=== PATIENT | female | born 1955 | race American Indian/Alaskan Native ===

== ENCOUNTER 2018-02-15 06:52 | Day surgery (SDC) | payer OTHER ==
[~2018-02-15 06:52] MED LIST: ANCEF/STERILE WATER 2 GM/20 ML 2 GM/20 ML SYRINGE IV NR; NACL 0.9% 1000 ML 1,000 ML IV SCH
[2018-02-15] MEDS ORDERED: NACL 0.9% 500 ML 500 ML IV SCH (08:00)
[2018-02-15 08:41] LABS: Basophils # (Auto) 0.1 K/mm3 (0.0-0.1); Basophils % (Auto) 0.8 % (0.0-1.8); Eosinophils # (Auto) 0.1 K/mm3 (0.0-0.4); Eosinophils % (Auto) 0.5 % (0.0-4.3); Hematocrit 40.3 % (30.3-42.9); Hemoglobin 13.2 gm/dl (10.1-14.3); Lymphocytes # (Auto) 1.6 K/mm3 (1.2-5.4); Lymphocytes % (Auto) 13.4 % (13.4-35.0); Mean Corpuscular HGB Conc 33 % (30-34); Mean Corpuscular Hemoglobin 28 pg (28-32); Mean Corpuscular Volume 85 fl (79-97); Monocytes # (Auto) 0.4 K/mm3 (0.0-0.8); Monocytes % (Auto) 3.6 % (0.0-7.3); Platelet Count 263 K/mm3 (140-440); Red Blood Count 4.73 M/mm3 (3.65-5.03); Red Cell Distribution Width 17.4 % (13.2-15.2)
[2018-02-15 08:51] LABS: INR 0.83 (0.87-1.13); Partial Thromboplastin Time 29.1 Sec. (24.2-36.6)
[2018-02-15 08:57] LABS: BUN/Creatinine Ratio 17; Blood Urea Nitrogen 10 mg/dL (7-17); Calcium 8.7 mg/dL (8.4-10.2); Hemolysis Index 1
[2018-02-15] MEDS ORDERED: HEPARIN/NS 5000 UNIT/500ML(CATH LAB) 500 ML IR ONE (08:57)
[2018-02-15] MEDS ORDERED: VERSED ONE (08:58)
[2018-02-15] MEDS ORDERED: HEPARIN 10,000 UNITS/10 ML ONE (08:59)
[2018-02-15] MEDS ORDERED: XYLOCAINE 2% INFILTRATI ONE (08:59)
[2018-02-15] MEDS: SUBLIMAZE ONE ×2 (09:15→09:48)
[2018-02-15] MEDS ORDERED: TORADOL ONE (09:36)
--- NOTE | 2018-02-15 09:48 | Short Stay Summary ---
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 H&P: obtained from office - Allergies and Medications Current Medications: Allergies No Known Allergies Allergy (Verified 02/15/18 07:34) Home Medications Medication Instructions Recorded Confirmed Last Taken Type Aspirin [Aspirin BABY CHEW TAB] 81 mg PO QDAY 02/15/18 02/15/18 02/15/18 History 81 Bisoprolol 10 mg PO QDAY 02/15/18 02/15/18 02/15/18 History 10 Sertraline [Zoloft] 50 mg PO QDAY 02/15/18 02/15/18 02/08/18 History 50 Zolpidem [Ambien] 10 mg PO QHS 02/15/18 02/15/18 02/08/18 History 10 predniSONE [Deltasone] 10 mg PO QDAY 02/15/18 02/15/18 02/14/18 History 10 Active Medications Cefazolin Sodium (Ancef/Sterile Water 2 Gm/20 Ml) 2 gm in 20 mls @ 80 mls/hr IV PREOP NR; Protocol Stop: 02/15/18 23:59 Sodium Chloride (Nacl 0.9% 500 Ml) 500 mls @ 50 mls/hr IV DIRECT ASHLEY - Brief post op/procedure progress note Date of procedure: 02/15/18 Pre-op diagnosis: venous hypertension secondary to extrinsic compression Post-op diagnosis: same Procedure: Venoplasty with stent placement Anesthesia: local Surgeon: DALY OREILYL Estimated blood loss: minimal Pathology: none Condition: stable - Disposition Condition at discharge: Good Disposition: [id number] TO HOME OR SELFCARE Short Stay Discharge Plan Activity: advance as tolerated Weight Bearing Status: Weight Bear as Tolerated Diet: regular Wound: keep clean and dry, per your surgeon's advice Follow up with: KENNA COLLAZO MD [Primary Care Provider] - 7 Days
--- NOTE | 2018-02-15 09:54 | Operative Report ---
Operative Report Operative Report: Exam: Bilateral lower extremity venogram, intravascular ultrasound, venoplasty with stent placement Clinical indication: Patient with bilateral lower extremity venous hypertension secondary to extrinsic compression of a vein Date: 02/15/2018 Procedure: Following an explanation of the risks, benefits and alternatives; written informed consent was obtained. The patient was brought to the angiographic suite and placed in supine position on the examination table. Initial ultrasound evaluation of her legs demonstrated patent bilateral femoral veins. The patient's legs were prepped from mid thigh to the groin bilaterally. 1% lidocaine was used for anesthesia. Under ultrasound guidance, the right femoral vein was cannulated proximally using a 7 cm 18-gauge needle. A 0.035 guidewire was advanced centrally under fluoroscopy. The needle was removed and a 5 [place] sheath placed. Access to the left femoral vein was obtained in a similar fashion and a second 5 [place] sheath placed in the left femoral vein. Contrast was injected through the sheath which demonstrated significant extrinsic compression of the left common iliac vein from the right common iliac artery. Additionally, there is significant compression of the right common iliac vein from the right common iliac artery is well. A decision was made to further evaluate with intravascular ultrasound. Over the 0.035 guidewires, the sheaths were upsized to 10 [place] bilaterally. Intravascular ultrasound was performed through the right sheath from the IVC to the right common iliac vein, right external iliac vein and right common femoral vein. There is long segment narrowing of the right common iliac vein extending into the right external iliac vein of approximately 60%. The right common femoral vein is patent. Intravascular ultrasound was then performed from the left sheath from the IVC to the left common iliac vein, left external iliac vein and left common femoral vein. There is a focal 80-90% stenosis of the left common iliac vein just distal to its origin from the artery compressing the vein. There is prestenotic dilatation of the left external iliac vein. The left common femoral vein appears normal. A decision was made to treat these lesions. A 16 x 90 mm Wallstent was advanced through the left sheath. A second 16-90 mm Wallstent was advanced through the right sheath. The stents were deployed in kissing fashion to extending from just above the iliac bifurcation to the external iliac veins bilaterally. The stents were then seated using a 14 mm x 40 mm balloon insufflated to 4 juma at multiple locations. Post stent deployment imaging demonstrated reduction of the stenosis to less than 10% bilaterally. The catheters, guidewires and she's were removed and hemostasis achieved using manual compression. Compression dressings were then applied bilaterally. The patient tolerated the procedure well. There were no immediate post procedure complications. Conscious sedation was performed under the guidance of radiologic nursing. Continuous cardiopulmonary monitoring was utilized. Impression: 1) Bilateral lower extremity venogram demonstrating significant compression of the left common iliac vein and right common iliac vein and right external iliac vein. 2) Intravascular ultrasound of the IVC, right common iliac vein, right external iliac vein, right common femoral vein, left common iliac vein, left external iliac vein and left common femoral vein demonstrating 80-90% stenosis of the left common iliac vein and 60% stenosis of the right common iliac vein extending into the right external iliac vein. 3) Venoplasty and stent placement extending from the distal IVC to the bilateral external iliac veins with reduction of the stenosis bilaterally to less than 10%.
[2018-02-15] MEDS ORDERED: MORPHINE IV ONE (10:17)
[2018-02-15] MEDS ORDERED: NORCO 5/325 PO ONE (11:30)
[2018-02-15 15:58] VITALS: BP 121/90
== END 2018-02-15 11:50 | disposition home or self-care (01) ==
LOC: CATHLABREC 06:52
PROVIDERS: ATTEND Radiology Diagnostic Radiology
DX: I87.2 Venous insufficiency (chronic) (peripheral) (principal); I87.303 Chronic venous hypertension (idiopathic) without complications of bilateral lower extremity; Z79.01 Long term (current) use of anticoagulants
CPT/HCPCS: 36415; 37238; 37239; 37252; 37253; 76937; 80048; 85025; 85610; 85730; 96374; 99156; 99157; C1725; C1753; C1769; C1876; C1894; J1644; J1885; J2250; J2270; J3010; Q9967